=== PATIENT | female | born 1995 | race Caucasian/White ===

== ENCOUNTER 2022-10-09 08:00 | Outpatient (CLI) | payer OTHER ==
[2022-10-09 17:50] LABS: BILIRUBIN,URINE NEGATIVE (NEGATIVE); GLUCOSE, URINE (UA) NEGATIVE (NEGATIVE); KETONES,URINE (UA) NEGATIVE (NEGATIVE); LEUKOCYTE ESTERASE, URINE LARGE (NEGATIVE); NITRITE,URINE NEGATIVE (NEGATIVE); OCCULT BLOOD,URINE NEGATIVE (NEGATIVE); PROTEIN,URINE TRACE mg/dL (NEGATIVE); UROBILINOGEN,URINE 0.2 (NORMAL) E.U./dL (NORMAL)
[2022-10-09 17:52] LABS: CLARITY,URINE HAZY (CLEAR)
[2022-10-09 18:10] LABS: WBC,URINE >25 /HPF (0-5)
[2022-10-09 18:11] LABS: BACTERIA,URINE Moderate /HPF (None Seen); MUCUS,URINE Marked Strands; RBC,URINE 0-5 /HPF (0-5); SQUAMOUS EPITHELIAL CELL,UR MANY Squamous (<= Few)
== END 2022-10-09 23:59 | disposition home or self-care (01) ==
LOC: LAB.WC 08:00
PROVIDERS: ATTEND Nurse Practitioner
DX: Z34.90 Encounter for supervision of normal pregnancy, unspecified, unspecified trimester (principal)
CPT/HCPCS: 81001; 87086

== ENCOUNTER 2022-10-12 15:49 | Outpatient (CLI) | payer OTHER ==
[2022-10-12 16:14] LABS: BASOPHILS % (AUTO) 0.3 %; EOSINOPHILS # (AUTO) 0.1 10^3/uL (0.0-0.7); HCT - HEMATOCRIT 41.9 % (37.0-47.0); HGB - HEMOGLOBIN 14.1 g/dL (12.0-16.0); LYMPHOCYTES # (AUTO) 3.2 10^3/uL (1.5-3.5); LYMPHOCYTES % (AUTO) 25.7 %; MEAN CORPUSCULAR HEMOGLOBIN 30.6 pg (27.0-31.0); MEAN CORPUSCULAR HGB CONC 33.7 g/dL (32.0-36.0); MEAN CORPUSCULAR VOLUME 90.9 fL (81.0-99.0); MEAN PLATELET VOLUME 10.5 fL (7.9-10.8); MONOCYTES # (AUTO) 1.1 10^3/uL (0.0-1.0); MONOCYTES % (AUTO) 8.6 %; PLT - PLATELET COUNT 267 10^3/uL (130-450); RED BLOOD COUNT 4.61 10^6/uL (4.20-5.40); RED CELL DISTRIBUTION WIDTH 11.9 % (12.0-15.0); WHITE BLOOD COUNT 12.6 x10^3/uL (4.8-10.8)
[2022-10-13 03:08] LABS: HIV SCREEN 4TH GENERATION Non Reactive (Non Reactive)
[2022-10-13 05:10] LABS: HBsAG SCREEN Negative (Negative); HCV AB <0.1 s/co ratio (0.0-0.9)
[2022-10-13 07:11] LABS: RPR Non Reactive (Non Reactive)
== END 2022-10-12 15:50 | disposition home or self-care (01) ==
LOC: LAB 15:49
PROVIDERS: ATTEND Nurse Practitioner
DX: Z34.90 Encounter for supervision of normal pregnancy, unspecified, unspecified trimester (principal)
CPT/HCPCS: 36415; 85025; 86592; 86762; 86787; 86803; 86850; 86900; 86901; 87340; 87389

== ENCOUNTER 2022-10-21 16:49 | Outpatient (CLI) | payer OTHER ==
--- NOTE | 2022-10-21 21:09 | Ultrasound Report ---
PROCEDURE: OB First Trimester w/TV INDICATIONS: POSITIVE TEST OUTSIDE/PRIOR DATING DATA: Last menstrual period (LMP): 08/27/2022. LMP-based estimated date of delivery (YOMI): 06/03/2023. First dating scan (date and location): 10/21/2022. Estimated date of delivery (YOMI) from first dating scan: 06/04/2023. TECHNIQUE: Real-time scanning was performed of the fetus and maternal pelvic organs, with image documentation. Endovaginal scanning was also performed to better visualize the fetus and maternal ovaries. COMPARISON: None FINDINGS: Anteverted uterus contains a fundal gestational sac with a moderate decidual response. There is a sma ll inferior. Gestational hemorrhage measuring 1.5 x 0.7 x 2.7 cm. The maternal cervix is closed. Mean gestational sac diameter is 3.08 cm. There is a pole with an average crown-rump length of 1.4 cm corresponding to a 7 week 5 day gestation. There is an unfused amnion and normal appearing yol k sac. There is detectable cardiac activity and the fetus at a rate of 157 bpm. Maternal left ovary has a normal follicular appearance. Maternal right ovary contains a dominant foll icle with peripheral vascularity consistent with a corpus luteum. No free pelvic fluid. IMPRESSION: 1. Single living intrauterine with a gestational age of 7 weeks 5 days and estimated due da te 06/04/2023. 2. Small subchorionic hemorrhage but closed maternal cervix. 3. Right ovarian corpus luteum. Reviewed by: Celeste Platt MD on 10/21/2022 9:08 PM PST Approved by: Celeste Platt MD on 10/21/2022 9:08 PM PST Station ID: [id number]
== END 2022-10-21 16:50 | disposition home or self-care (01) ==
LOC: DI 16:49
PROVIDERS: ATTEND Nurse Practitioner
DX: O20.9 Hemorrhage in early pregnancy, unspecified (principal); O34.81 Maternal care for other abnormalities of pelvic organs, first trimester; N83.11 Corpus luteum cyst of right ovary; Z3A.01 Less than 8 weeks gestation of pregnancy

== ENCOUNTER 2022-11-06 11:03 | Outpatient (CLI) | payer OTHER ==
[2022-11-06 11:16] LABS: BILIRUBIN,URINE NEGATIVE (NEGATIVE); GLUCOSE, URINE (UA) NEGATIVE (NEGATIVE); KETONES,URINE (UA) NEGATIVE (NEGATIVE); LEUKOCYTE ESTERASE, URINE NEGATIVE (NEGATIVE); NITRITE,URINE NEGATIVE (NEGATIVE); OCCULT BLOOD,URINE NEGATIVE (NEGATIVE); PROTEIN,URINE NEGATIVE (NEGATIVE); UROBILINOGEN,URINE 0.2 (NORMAL) E.U./dL (NORMAL)
[2022-11-06 11:22] LABS: CLARITY,URINE HAZY (CLEAR)
[2022-11-06 11:27] LABS: BACTERIA,URINE Many /HPF (None Seen); MUCUS,URINE Marked Strands; RBC,URINE 0-5 /HPF (0-5); SQUAMOUS EPITHELIAL CELL,UR MANY Squamous (<= Few)
== END 2022-11-06 11:04 | disposition home or self-care (01) ==
LOC: LAB 11:03
PROVIDERS: ATTEND Nurse Practitioner
DX: R82.90 Unspecified abnormal findings in urine (principal)
CPT/HCPCS: 81001; 87086

== ENCOUNTER 2022-11-12 11:30 | Outpatient (CLI) | payer OTHER | END 2022-11-12 11:31 | disposition home or self-care (01) | LOC: LAB 11:30 | PROVIDERS: ATTEND Obstetrics & Gynecology | DX: E06.3 Autoimmune thyroiditis (principal) | CPT/HCPCS: 36415; 84443 ==

== ENCOUNTER 2022-12-22 15:45 | Outpatient (CLI) | payer OTHER ==
[2022-12-24 21:07] LABS: AFP MOM 0.85 (.); AFP VALUE 30.6 ng/mL (.); DIA MOM 1.06 (.); DIA VALUE 156.56 pg/mL (.); DSR (BY AGE) 1 IN 699 (.); DSR (SECOND TRIMESTER) 1 IN 2099 (.); GEST. AGE ON COLLECTION DATE 16.7 WEEKS (.); HCG MOM 1.46 (.); HCG VALUE 51573 mIU/mL (.); INSULIN DEP DIABETES No (.); MULTIPLE GESTATION No (.); OPEN SPINA BIFIDA RISK 1 IN 10000 (.); RACE Caucasian (.); RESULTS Report (.); TEST RESULTS *Screen Negative* (.); TRISOMY 18 RISK Not increased (.); UE3 MOM 0.97 (.); UE3 VALUE 1.06 ng/mL (.); WEIGHT 166 lbs (.)
== END 2022-12-22 15:46 | disposition home or self-care (01) ==
LOC: LAB 15:45
PROVIDERS: ATTEND Obstetrics & Gynecology
DX: Z36.89 Encounter for other specified antenatal screening (principal)
CPT/HCPCS: 36415; 81511

== ENCOUNTER 2023-01-19 19:00 | Outpatient (CLI) | payer OTHER ==
--- NOTE | 2023-01-21 09:27 | Ultrasound Report ---
PROCEDURE: OB Detailed Eval INDICATIONS: SIPERVISION OF OUTSIDE/PRIOR DATING DATA: Last menstrual period (LMP): 08/25/2022. LMP-based estimated date of delivery (YOMI): 06/03/2023. First dating scan (date and location): 10/21/2022. Estimated date of delivery (YOMI) from first dating scan: 06/04/2023. The below data below was generated using the working YOMI of 06/04/2023 TECHNIQUE: Real-time scanning was performed of the fetus, with image documentation and biometric measurements. Endovaginal scanning: Not performed COMPARISON: OB Ultrasound 10/21/2022. FINDINGS: General: A single living intrauterine gestation is present. Presentation: Breech Placenta: Placental position is posterior, without previa. Amniotic fluid index: 13.3 cm; largest pocket 4.4 cm. heart rate: 158 beats per minute. Maternal cervical canal: 4.2 cm long; normal length is 2.5 cm or more. biometrics: Biparietal diameter: 21 weeks 2 days. Head circumference: 21 weeks 2 days Abdominal circumference: 22 weeks 0 day Femur length: 21 weeks 2 days Estimated gestational age from initial scan: 20 weeks 4 days. Composite gestational age from present scan: 21 weeks 2 days Estimated weight and percentile: 437.9 g; 93.1% Measurement variability in biometric dating: +/- 10 days from 12-20 weeks gestation, +/- 2 weeks from 20-30 weeks gestation, +/- 3 weeks at 30 weeks gestation or later. Anatomic survey: Neuro: Ventricles are normal at less than 10 mm. Cisterna magna is normal at 3-11 mm. Cerebellum i s normal in size and morphology. Nuchal skin fold: Normal at less than 6 mm between 14 and 20 weeks gestational age. Face: Nose and lips, facial profile are normal. Spine: No evidence for spina bifida. Heart: 4-chambered heart is present, with normal ventricular outflow tracts. Diaphragm: Diaphragm is intact. Stomach: Left-sided stomach is present. Kidneys: No hydronephrosis. Normal is less than 5 mm in 2nd trimester, less than 7 mm in 3rd trimester. Cord: 3 vessel cord has orthotopic insertion. Bladder: Normal in size. Extremities: All 4 extremities are visualized. IMPRESSION: 1. A single living IUP is again identified and demonstrates normal interval growth. 2. weight at the 93.1% for gestational age. Reviewed by: Nirali Kang MD on 01/21/2023 9:26 AM [facility] Approved by: Nirali Kang MD on 01/21/2023 9:26 AM [facility] Station ID: [id number]
== END 2023-01-19 19:01 | disposition home or self-care (01) ==
LOC: DI 19:00
PROVIDERS: ATTEND Obstetrics & Gynecology
DX: Z34.90 Encounter for supervision of normal pregnancy, unspecified, unspecified trimester (principal); Z36.89 Encounter for other specified antenatal screening; Z3A.21 21 weeks gestation of pregnancy

== ENCOUNTER 2023-02-05 11:49 | Outpatient (CLI) | payer OTHER | END 2023-02-05 11:50 | disposition home or self-care (01) | LOC: LAB 11:49 | PROVIDERS: ATTEND Nurse Practitioner | DX: O26.842 Uterine size-date discrepancy, second trimester (principal) | CPT/HCPCS: 36415; 82950 ==

== ENCOUNTER 2023-03-05 12:40 | Outpatient (CLI) | payer OTHER ==
[2023-03-05 12:57] LABS: BASOPHILS % (AUTO) 0.3 %; EOSINOPHILS # (AUTO) 0.1 10^3/uL (0.0-0.7); EOSINOPHILS % (AUTO) 0.7 %; HCT - HEMATOCRIT 37.6 % (37.0-47.0); HGB - HEMOGLOBIN 12.5 g/dL (12.0-16.0); LYMPHOCYTES % (AUTO) 17.8 %; MEAN CORPUSCULAR HEMOGLOBIN 30.8 pg (27.0-31.0); MEAN CORPUSCULAR HGB CONC 33.2 g/dL (32.0-36.0); MEAN CORPUSCULAR VOLUME 92.6 fL (81.0-99.0); MONOCYTES # (AUTO) 0.7 10^3/uL (0.0-1.0); MONOCYTES % (AUTO) 6.5 %; NEUTROPHILS # (AUTO) 8.4 10^3/uL (1.5-6.6); NEUTROPHILS % (AUTO) 73.9 %; PLT - PLATELET COUNT 227 10^3/uL (130-450); RED BLOOD COUNT 4.06 10^6/uL (4.20-5.40); RED CELL DISTRIBUTION WIDTH 12.8 % (12.0-15.0); WHITE BLOOD COUNT 11.3 x10^3/uL (4.8-10.8)
[2023-03-05 13:19] LABS: ALBUMIN 2.8 g/dL (3.2-5.5); ALBUMIN/GLOBULIN RATIO 0.8 (1.0-2.2); BILIRUBIN,TOTAL 0.5 mg/dL (0.2-1.0); CALCIUM 8.8 mg/dL (8.5-10.3); CREATININE 0.5 mg/dL (0.4-1.0); POTASSIUM 3.5 mmol/L (3.5-5.0); TOTAL PROTEIN 6.1 g/dL (6.7-8.2); URIC ACID 4.5 mg/dL (2.6-7.2)
== END 2023-03-05 12:41 | disposition home or self-care (01) ==
LOC: LAB 12:40
PROVIDERS: ATTEND Nurse Practitioner
DX: O99.891 Other specified diseases and conditions complicating pregnancy (principal); R10.13 Epigastric pain
CPT/HCPCS: 36415; 80053; 82542; 82728; 84550; 85025

== ENCOUNTER 2023-04-06 11:15 | Outpatient (CLI) | payer OTHER ==
[2023-04-06 12:09] LABS: BASOPHILS % (AUTO) 0.4 %; EOSINOPHILS # (AUTO) 0.1 10^3/uL (0.0-0.7); EOSINOPHILS % (AUTO) 0.9 %; HCT - HEMATOCRIT 39.4 % (37.0-47.0); HGB - HEMOGLOBIN 13.2 g/dL (12.0-16.0); LYMPHOCYTES # (AUTO) 2.1 10^3/uL (1.5-3.5); LYMPHOCYTES % (AUTO) 20.5 %; MEAN CORPUSCULAR HEMOGLOBIN 30.5 pg (27.0-31.0); MEAN CORPUSCULAR HGB CONC 33.5 g/dL (32.0-36.0); MEAN PLATELET VOLUME 10.4 fL (7.9-10.8); MONOCYTES # (AUTO) 0.9 10^3/uL (0.0-1.0); MONOCYTES % (AUTO) 8.3 %; NEUTROPHILS # (AUTO) 7.2 10^3/uL (1.5-6.6); NEUTROPHILS % (AUTO) 68.8 %; PLT - PLATELET COUNT 214 10^3/uL (130-450); RED BLOOD COUNT 4.33 10^6/uL (4.20-5.40); RED CELL DISTRIBUTION WIDTH 12.5 % (12.0-15.0); WHITE BLOOD COUNT 10.4 x10^3/uL (4.8-10.8)
[2023-04-06 12:15] VITALS: BP 103/66
[2023-04-06 12:22] LABS: ALBUMIN 2.9 g/dL (3.2-5.5); ALBUMIN/GLOBULIN RATIO 0.8 (1.0-2.2); BILIRUBIN,TOTAL 0.5 mg/dL (0.2-1.0); CALCIUM 9.1 mg/dL (8.5-10.3); CREATININE 0.6 mg/dL (0.4-1.0); POTASSIUM 4.1 mmol/L (3.5-5.0); TOTAL PROTEIN 6.6 g/dL (6.7-8.2)
--- NOTE | 2023-04-06 14:15 | Ultrasound Report ---
PROCEDURE: Abdomen Limited INDICATIONS: Right lower quadrant pain TECHNIQUE: Real-time focused scanning was performed of the abdomen, with image documentation. COMPARISONS: None. FINDINGS: Graded compression scanning the right lower quadrant fails to demonstrate the appendix. No free fluid or adenopathy present. Normal appearing bowel and fascial planes IMPRESSION: Nonvisualized appendix. Appendicitis not excluded Reviewed by: Isauro Aparicio MD on 04/06/2023 1:14 PM [facility] Approved by: Isauro Aparicio MD on 04/06/2023 1:14 PM [facility] Station ID: [id number]
--- NOTE | 2023-04-06 14:18 | Ultrasound Report ---
PROCEDURE: OB F/U or Repeat INDICATIONS: Decreased movement OUTSIDE/PRIOR DATING DATA: Last menstrual period (LMP): 08/27/2022. LMP-based estimated date of delivery (YOMI): 06/03/2023. First dating scan (date and location): 10/21/2022. Estimated date of delivery (YOMI) from first dating scan: 06/04/2023. The below data below was generated using the working YOMI of 06/04/2023 TECHNIQUE: Real-time scanning was performed of the fetus, with image documentation and biometric measurements. Endovaginal scanning: None COMPARISON: 01/19/2023 FINDINGS: General: A single living intrauterine gestation is present. Presentation: Cephalic Placenta: Placental position is posterior/fundal, without previa. Amniotic fluid index: 13.6 cm, 40.9 for gestational age. heart rate: 145 beats per minute. Maternal cervical canal: 3.9 cm long; normal length is 2.5 cm or more. biometrics: Biparietal diameter: 8.5 cm, 34 week 1 day Head circumference: 31.6 cm, 35 week 4 day Abdominal circumference: 30.4 cm, 34 week 3 day Femur length: 6.5 cm, 33 week 5 day Estimated gestational age from initial scan: 31 week 4 day Composite gestational age from present scan: 34 week 3 day Estimated weight and percentile: 2392 g, 99 percentile Measurement variability in biometric dating: +/- 10 days from 12-20 weeks gestation, +/- 2 weeks from 20-30 weeks gestation, +/- 3 weeks at 30 weeks gestation or more. Other: Incidental note is made of bilateral renal pelvocaliectasis measured 6.9 mm on the right IMPRESSION: Single live intrauterine consistent with 34 week 3 day gestation. Estimated weight is at the 99th percentile Reviewed by: Isauro Aparicio MD on 04/06/2023 1:17 PM [facility] Approved by: Isauro Aparicio MD on 04/06/2023 1:17 PM [facility] Station ID: [id number]
--- NOTE | 2023-04-06 18:54 | PROVIDER PROGRESS NOTE ---
- HPI Chief Complaint: Decreased movement Current : Current EDU 06/03/23 Gestation 31 Weeks and 5 Days 1 Para 0 Vital Signs Heart Rate 68 04/06/23 11:36 Respiratory Rate 18 04/06/23 11:36 Blood Pressure 75/44 L 04/06/23 11:36 O2 Saturation 100 04/06/23 11:36 Temperature 98.2 F 04/06/23 12:36 Heart Rate 79 04/06/23 11:43 Respiratory Rate 18 04/06/23 11:43 Blood Pressure 103/66 04/06/23 11:43 O2 Saturation 100 04/06/23 11:36 If not protocol: Oxygen Flow, liters/minute - Procedures OB Procedure Performed: NST Diagnosis/Indication for NST: Decreased movement NST Procedure: NST Procedure Start Date 04/06/23 Start Time 11:20 Stop Time 11:51 Vibroacoustic Stimulation Used No Patient States Movement No: not in past 2 hours EFM: 140, moderate variability, positive 15x15 accelerations, no decelerations [place]: no contractions NST reactive/Cat 1 Performed and read 04/06/23 Service Date of procedure: 04/06/23 - Plan Plan: 27yo at 31.5w presented to [facility] with concern of decreased movement for over an hour, initially presented tearful. She also reports pain right side of umbilicus 8/10 earlier this am. Currently pain is less 2-3. Denies leaking fluid or contractions or bleeding. Has felt FM in triage. Ate breakfast this morning and is tolerating crackers right now. Denies nausea/vomiting. Last BM yesterday and normal. Denies any abdominal trauma. care at and complicated by hypothyroidism, mild intermittent asthma, genital hsv. VSS GEN: NAD CV: Regular rate Resp: Breathing unlabored Abd: soft, no rebound or guarding, mild ttp right side Ext: nt CBC and CMP reviewed and benign OB US- growth >99th%, CL 3.9cm long ABD US- did not visualize appendix 27yo at 31.5w, false labor - NST reactive, patient reassured - CL 3.9cm, no contractions - Evaluated for appendicitis, not visualized. Exam benign, she will continue to monitor symptoms - Discharge to home, follow up as scheduled or prn
== END 2023-04-06 14:15 | disposition home or self-care (01) ==
LOC: WFO 11:15 → FBP 11:17 → WFO 14:15
PROVIDERS: ATTEND Obstetrics & Gynecology
DX: O36.8130 Decreased fetal movements, third trimester, not applicable or unspecified (principal); O47.03 False labor before 37 completed weeks of gestation, third trimester; O99.891 Other specified diseases and conditions complicating pregnancy; R10.31 Right lower quadrant pain; O99.283 Endocrine, nutritional and metabolic diseases complicating pregnancy, third trimester; E03.9 Hypothyroidism, unspecified; O99.513 Diseases of the respiratory system complicating pregnancy, third trimester; J45.20 Mild intermittent asthma, uncomplicated; B00.9 Herpesviral infection, unspecified; O98.313 Other infections with a predominantly sexual mode of transmission complicating pregnancy, third trimester; A60.09 Herpesviral infection of other urogenital tract; Z3A.31 31 weeks gestation of pregnancy
CPT/HCPCS: 36415; 59025; 80053; 85025; 99213

== ENCOUNTER 2023-05-04 09:24 | Outpatient (CLI) | payer OTHER ==
--- NOTE | 2023-05-04 16:50 | Ultrasound Report ---
PROCEDURE: OB F/U or Repeat INDICATIONS: UTERINE SIZE DATE DISCREPENCY OUTSIDE/PRIOR DATING DATA: Last menstrual period (LMP): 08/27/2022. LMP-based estimated date of delivery (YOMI): 06/03/2023. First dating scan (date and location): 10/21/2022. Estimated date of delivery (YOMI) from first dating scan: 06/04/2023. The below data below was generated using the ultrasound YOMI of 06/04/2023 TECHNIQUE: Real-time scanning was performed of the fetus, with image documentation and biometric measurements. Endovaginal scanning: Not performed COMPARISON: 04/06/2023 FINDINGS: General: A single living intrauterine gestation is present. Presentation: Cephalic Placenta: Placental position is posterior, without previa. Amniotic fluid index: 18.1 cm, largest pocket is 6.2 cm. heart rate: 143 beats per minute. Maternal cervical canal: Not seen biometrics: Biparietal diameter: 9.2 cm, 37 weeks 1 day Head circumference: 33.8 cm, 38 weeks 5 days Abdominal circumference: 35.3 cm, 39 weeks 1 day Femur length: 7.2 cm, 37 weeks 0 days Estimated gestational age from initial scan: 35 weeks 4 days. Composite gestational age from present scan: 38 weeks 0 days Estimated weight and percentile: 3478 g, 99th percentile Measurement variability in biometric dating: +/- 10 days from 12-20 weeks gestation, +/- 2 weeks from 20-30 weeks gestation, +/- 3 weeks at 30 weeks gestation or more. Other: Not applicable. IMPRESSION: 1. Single living intrauterine . 2. Estimated weight at the 99th percentile, similar compared to the prior study. 3. Normal amniotic fluid volume. Reviewed by: Celeste Platt MD on 05/04/2023 4:49 PM PDT Approved by: Celeste Platt MD on 05/04/2023 4:49 PM PDT Station ID: [id number]
== END 2023-05-04 09:25 | disposition home or self-care (01) ==
LOC: DI 09:24
PROVIDERS: ATTEND Nurse Practitioner
DX: O26.843 Uterine size-date discrepancy, third trimester (principal); O99.283 Endocrine, nutritional and metabolic diseases complicating pregnancy, third trimester; E06.3 Autoimmune thyroiditis; Z3A.38 38 weeks gestation of pregnancy
CPT/HCPCS: 36415; 84443

== ENCOUNTER 2023-05-07 08:00 | Outpatient (CLI) | payer OTHER | END 2023-05-07 23:59 | disposition home or self-care (01) | LOC: LAB.WC 08:00 | PROVIDERS: ATTEND Obstetrics & Gynecology | DX: Z36.85 Encounter for antenatal screening for Streptococcus B (principal) | CPT/HCPCS: 87797 ==

== ENCOUNTER 2023-05-08 13:32 | Outpatient (CLI) | payer OTHER ==
[2023-05-08 14:03] VITALS: BP 114/74
[2023-05-08 14:23] LABS: RUPTURE OF MEMBRANES PLUS NEGATIVE (NEGATIVE)
--- NOTE | 2023-05-08 15:08 | PROVIDER PROGRESS NOTE ---
- HPI Chief Complaint: Leakage of vaginal fluid Current : Vital Signs Temperature 98.2 F 05/08/23 13:54 Heart Rate 86 05/08/23 13:54 Respiratory Rate 16 05/08/23 13:54 Blood Pressure 114/74 05/08/23 13:54 Temperature 98.2 F 05/08/23 13:54 Heart Rate 86 05/08/23 13:54 Respiratory Rate 16 05/08/23 13:54 Blood Pressure 114/74 05/08/23 13:54 O2 Saturation If not protocol: Oxygen Flow, liters/minute - Procedures Diagnosis/Indication for NST: labor NST Procedure: NST Procedure Start Time 11:20 Stop Time 11:51 EFM: 140s, moderate variability, positive accelerations, no decelerations [place]: occasional contractions NST reactive/Cat 1 Performed and read 05/08/23 - Plan Plan: 27yo at 36.2w presenting to [facility] with concern of leaking fluid. Occasional mild contractions, 1-2cm yesterday in the office. No vaginal bleeding. Good movement. care at . S GEN: NAD NST reactive ROMPLUS neg 27yo at 36.2w, false labor - Membranes intact - Labor precautions - Discharge home, follow up 05/13/23
== END 2023-05-08 14:50 | disposition home or self-care (01) ==
LOC: WFO 13:32 → FBP 13:35 → WFO 14:50
PROVIDERS: ATTEND Obstetrics & Gynecology
DX: O47.03 False labor before 37 completed weeks of gestation, third trimester (principal); O99.891 Other specified diseases and conditions complicating pregnancy; N89.8 Other specified noninflammatory disorders of vagina; Z3A.36 36 weeks gestation of pregnancy
CPT/HCPCS: 59025; 84112; 99215

== ENCOUNTER 2023-05-23 08:08 | Outpatient (CLI) | payer OTHER ==
[2023-05-23 08:53] VITALS: BP 129/77
--- NOTE | 2023-05-23 09:39 | PROCEDURE REPORT ---
- HPI Diagnosis/Indication for NST: Decreased movement Vital Signs Temperature 97.9 F 05/23/23 08:43 Temperature 97.9 F 05/23/23 08:52 Heart Rate 86 05/23/23 08:52 Respiratory Rate 17 05/23/23 08:52 Blood Pressure 129/77 05/23/23 08:52 O2 Saturation 99 05/23/23 08:52 If not protocol: Oxygen Flow, liters/minute - NST Procedure NST Procedure Start Time 13:56 Stop Time 14:16 - Results and Plan Findings/Impression: Cat 1 tracing; mild cramping but no bleeding or discharge Recommend continued labor precautions and follow as schedule for planned induction this Daily FNC's and return if any changes
== END 2023-05-23 09:46 | disposition home or self-care (01) ==
LOC: WFO 08:08 → FBP 08:21 → WFO 09:46
PROVIDERS: ATTEND Obstetrics & Gynecology
DX: O36.8130 Decreased fetal movements, third trimester, not applicable or unspecified (principal); Z3A.38 38 weeks gestation of pregnancy
CPT/HCPCS: 59025; 99213; 99215

== ENCOUNTER 2023-05-30 00:13 | Inpatient (IN) | payer OTHER ==
[2023-05-30] MEDS ORDERED: OXYTOCIN/SODIUM CHLORIDE 500 ML IV PRN (01:49)
[2023-05-30] MEDS ORDERED: fentaNYL 100 MCG/2 ML VIAL IVP PRN (01:49)
[2023-05-30] MEDS ORDERED: OXYTOCIN 10 UNIT/ML VIAL IM PRN (01:49)
[2023-05-30] MEDS ORDERED: SODIUM CHLORIDE FLUSH 0.9% 10 ML SYRINGE IVP PRN (01:49)
[2023-05-30] MEDS ORDERED: METHYLERGONOVINE 0.2 MG/ML VIAL IM PRN (01:49)
[2023-05-30] MEDS ORDERED: ONDANSETRON 4 MG/2 ML VIAL IVP PRN (01:49)
[2023-05-30] MEDS ORDERED: hydrALAZINE INJ 20 MG/ML VIAL IVP PRN ×2 (01:49)
[2023-05-30] MEDS ORDERED: lidocaine 1% 20 ML MDV ID PRN (01:49)
[2023-05-30] MEDS ORDERED: NIFEdipine 10 MG CAPSULE PO PRN (01:49)
[2023-05-30] MEDS ORDERED: TRANEXAMIC ACID IN NACL 1,000 MG/100 ML BAG IV PRN (01:49)
[2023-05-30] MEDS ORDERED: miSOPROStoL 200 MCG TABLET BC PRN (01:49)
[2023-05-30] MEDS ORDERED: CARBOPROST TROMETHAMINE 250 MCG/ML AMP IM PRN (01:49)
[2023-05-30] MEDS ORDERED: AMPICILLIN 2 GM in SODIUM CHLORIDE 0.9% MINIBAG 100 ML IV ONE (01:49)
[2023-05-30] MEDS ORDERED: LABETALOL 20 MG/4 ML SYRINGE IVP PRN ×3 (01:49)
[2023-05-30] MEDS ORDERED: TERBUTALINE 1 MG/ML VIAL SUBQ PRN (01:49)
[2023-05-30] MEDS ORDERED: LACTATED RINGERS 1,000 ML IV SCH ×2 (02:00→15:00)
[2023-05-30 03:01] LABS: BASOPHILS % (AUTO) 0.4 %; EOSINOPHILS # (AUTO) 0.2 10^3/uL (0.0-0.7); EOSINOPHILS % (AUTO) 1.7 %; HCT - HEMATOCRIT 39.4 % (37.0-47.0); HGB - HEMOGLOBIN 13.4 g/dL (12.0-16.0); LYMPHOCYTES # (AUTO) 2.7 10^3/uL (1.5-3.5); MEAN CORPUSCULAR HEMOGLOBIN 30.9 pg (27.0-31.0); MEAN CORPUSCULAR VOLUME 90.8 fL (81.0-99.0); MEAN PLATELET VOLUME 12.2 fL (7.9-10.8); MONOCYTES % (AUTO) 8.9 %; NEUTROPHILS # (AUTO) 6.8 10^3/uL (1.5-6.6); NEUTROPHILS % (AUTO) 63.2 %; PLT - PLATELET COUNT 164 10^3/uL (130-450); RED BLOOD COUNT 4.34 10^6/uL (4.20-5.40); RED CELL DISTRIBUTION WIDTH 13.2 % (12.0-15.0); WHITE BLOOD COUNT 10.8 x10^3/uL (4.8-10.8)
[2023-05-30] MEDS: AMPICILLIN 1 GM in SODIUM CHLORIDE 0.9% MINIBAG 100 ML IV SCH ×2 (06:48→10:42)
--- NOTE | 2023-05-30 08:33 | HISTORY & PHYSICAL EXAMINATION ---
Admit History - Visit Reason Visit Reason: Membranes rupture - : 1 Parity: 0 Care: positive: [facility] Risk/History: positive: None Complications This : positive: None Smoking Status: Never smoker - Mother's Labs Mother's Blood Type: positive: AB Mother's RH: positive: Positive GBS: positive: Group B Strep Positive - HPI Current EDU 06/03/23 Gestation 39 Weeks and 3 Days 1 Vital Signs Temperature 98.6 F 05/30/23 00:47 Heart Rate 77 05/30/23 00:47 Respiratory Rate 20 05/30/23 00:47 Blood Pressure 121/84 H 05/30/23 00:47 Temperature 97.9 F 05/30/23 03:00 Heart Rate 94 05/30/23 03:00 Respiratory Rate 18 05/30/23 03:00 Blood Pressure 108/64 05/30/23 03:00 O2 Saturation If not protocol: Oxygen Flow, liters/minute - NST Procedure NST Procedure Start Time 08:30 Stop Time 09:20 Meds/Allgy - Allergies Allergies/Adverse Reactions: Allergies Allergy/AdvReac Type Severity Reaction Status Date / Time No Known Drug Allergies Allergy Verified 05/08/23 14:15 Review of Systems - Constitutional Constitutional: reports: Fatigue - All Other Systems All Other Systems: reports: Reviewed and negative Physical - Abdominal Exam Vital Signs: Temp Pulse Resp BP Pulse Ox O2 Flow Rate 97.9 F 94 18 108/64 05/30/23 03:00 05/30/23 03:00 05/30/23 03:00 05/30/23 03:00 : q 2-3 min Contraction Intensity: positive: Strong Uterine Resting Tone: positive: Soft - Monitoring Strip Review: positive: Category I - Presentation Presentation: positive: Vertex - Vaginal Exam Membranes: positive: Membranes ruptured Dilation (in cm): 5-6 Effacement (%): 100 Station: positive: 1 Cervical Position: positive: Midposition - Speculum Exam Speculum Exam Performed: positive: No Findings: positive: Gross leak Plan for Labor - Plan For Labor I expect patient to be DC'd or transferred within 96 hours.: Yes Plan for Labor: admit for labor 39 weeks. ampicillin for gbs pain management as desired. hsv on acyclovir until admit. no signs of lesions. large baby by ultrasound, 99%ile at 36 weeks. be ready for shoulder dystocia. pitocin augmentation as needed. not needed at this time. thyroid med daily.
--- NOTE | 2023-05-30 11:52 | PROVIDER PROGRESS NOTE ---
Subjective - Prog Note Date Prog Note Date: 05/30/23 Prog Note Time: 11:52 - Subjective Subjective: very painful with contractions. pushing involuntarily. still does not want an epidural. agrees to try some fentanyl. Objective - Vital Signs/Intake & Output Intake & Output: Intake & Output 05/27/23 05/28/23 05/29/23 05/30/23 23:59 23:59 23:59 23:59 Intake Total 200 Balance 200 - Objective Extremities: positive: Pedal edema (2+) - Lab Results Fish Bones: 05/30/23 02:40 Other Labs: Lab Results x24hrs 05/30/23 05/30/23 Range/Units 02:40 02:40 WBC 10.8 (4.8-10.8) x10^3/uL RBC 4.34 (4.20-5.40) 10^6/uL Hgb 13.4 (12.0-16.0) g/dL Hct 39.4 (37.0-47.0) % MCV 90.8 (81.0-99.0) fL MCH 30.9 (27.0-31.0) pg MCHC 34.0 (32.0-36.0) g/dL RDW 13.2 (12.0-15.0) % Plt Count 164 (130-450) 10^3/uL MPV 12.2 H (7.9-10.8) fL Neut # (Auto) 6.8 H (1.5-6.6) 10^3/uL Lymph # (Auto) 2.7 (1.5-3.5) 10^3/uL [place] # (Auto) 1.0 (0.0-1.0) 10^3/uL Eos # (Auto) 0.2 (0.0-0.7) 10^3/uL Baso # (Auto) 0.0 (0.0-0.1) 10^3/uL Absolute Nucleated RBC 0.00 x10^3/uL Nucleated RBC % 0.0 /100WBC Blood Type AB POSITIVE Antibody Screen NEGATIVE - Other Results/Comments Other Results/Comments: cervix 8-9 with anterior swelling that is pretty significant. cervix is bleeding more with each contraction. baby's head is filling pelvis, +1 station. hard to tell position as she is so uncomfortable. Assessment/Plan - Problem List (1) Normal labor Impression: making progress but is challenged by pain of contractions and urge to push. cervix is swelling. will try some fentanyl. baby is category 1. having some early decels.
[2023-05-30] MEDS ORDERED: MINERAL OIL LIGHT 10 ML MC ONE (13:42)
--- NOTE | 2023-05-30 14:25 | DELIVERY NOTE ---
Delivery Note - Labor Labor: positive: Spontaneous - Delivery Method Delivery Method: positive: Spontaneous vaginal delivery - Presentation Presentation: positive: Vertex, GORD[place] - right occiput anterior - Nuchal Cord Nuchal Cord: positive: None - Anesthetic Anesthetic Type: Anesthetic: positive: Lidocaine - 1% plain - Amniotic Fluid Description Amniotic Fluid Description: positive: Clear - Episiotomy Type Episiotomy Type: positive: None - Laceration Laceration: positive: 2nd degree, Perineal - Suture Suture Type: positive: Vicryl Suture Size: positive: 3-0 - Delivery Outcome Delivery Outcome: positive: Livebirth - : positive: Placed in direct skin contact with mother, Bulb syringe, Stimulated, Warmed, [place] used [place] sex: positive: Male - Cord Cord: positive: 3 vessels - Placenta Placenta: positive: Intact, Spontaneous - Estimated Blood Loss Estimated Blood Loss (in cc): 300 - Post Delivery Events Post Delivery Events: positive: No post delivery events - Delivery Comments (Free Text/Narrative) Delivery Comments (Free Text/Narrative): Patient's labor was completely spontaneous and unmedicated, except some nitrous oxide that did not help her and one dose of 50 mcg of fentanyl when she was 8-9 cm that also did not really help. She was 8-9 cm with an anterior lip that was a bit swollen for a few hours. I was finally able to reduce it when she was +2 to +3 station and then baby was at perineum. She was able to push her baby out in about 15 minutes. Polly and Bridger were an amazing labor team. Once the baby's head was , perineal massage and warm compress was done. She tore a bit at her perineum with delivery, 2nd degree. Baby Mio was put on her belly and cord was cut at 3 minutes. Placenta delivered about 3 minutes later. Pitocin was infused in the iv with delivery. Cord blood was collected. Perineum was injected with 1% lidocaine and repaired in 2 layers with 3-0 Vicryl Plus suture. Rectum was checked and is intact. No signs of infection. Definitely pushed out a cystocele and some hemorrhoids.
[2023-05-30] MEDS: IBUPROFEN 600 MG TABLET PO SCH ×2 (15:48→21:56)
[2023-05-30] MEDS: LEVOTHYROXINE 100 MCG TABLET PO SCH (20:04)
[2023-05-30] MEDS: ACETAMINOPHEN 325 MG TABLET PO PRN (21:55)
[2023-05-31] MEDS: IBUPROFEN 600 MG TABLET PO SCH ×2 (04:05→12:35)
[2023-05-31 07:20] LABS: BASOPHILS # (AUTO) 0.1 10^3/uL (0.0-0.1); BASOPHILS % (AUTO) 0.4 %; EOSINOPHILS % (AUTO) 0.2 %; HCT - HEMATOCRIT 34.2 % (37.0-47.0); HGB - HEMOGLOBIN 11.4 g/dL (12.0-16.0); LYMPHOCYTES # (AUTO) 2.8 10^3/uL (1.5-3.5); LYMPHOCYTES % (AUTO) 17.9 %; MEAN CORPUSCULAR HEMOGLOBIN 30.6 pg (27.0-31.0); MEAN CORPUSCULAR HGB CONC 33.3 g/dL (32.0-36.0); MEAN CORPUSCULAR VOLUME 91.9 fL (81.0-99.0); MEAN PLATELET VOLUME 12.2 fL (7.9-10.8); MONOCYTES # (AUTO) 1.3 10^3/uL (0.0-1.0); NEUTROPHILS # (AUTO) 11.3 10^3/uL (1.5-6.6); NEUTROPHILS % (AUTO) 72.9 %; PLT - PLATELET COUNT 154 10^3/uL (130-450); RED BLOOD COUNT 3.72 10^6/uL (4.20-5.40); RED CELL DISTRIBUTION WIDTH 13.2 % (12.0-15.0); WHITE BLOOD COUNT 15.6 x10^3/uL (4.8-10.8)
[2023-05-31] MEDS: ACETAMINOPHEN 325 MG TABLET PO PRN (12:34)
[2023-05-31] MEDS: LEVOTHYROXINE 100 MCG TABLET PO SCH (12:39)
[2023-05-31 12:45] VITALS: BP 119/75
--- NOTE | 2023-05-31 12:45 | Discharge Plan ---
Discharge Plan Problem Reviewed?: Yes Disposition: Home, Self Care Condition: Good Diet: Regular Activity Restrictions: pelvic rest for 6 weeks Shower Restrictions: No Driving Restrictions: No No Smoking: If you smoke, Please STOP! Call for help. Follow-up with: Alexandria Melgoza DO [Provider Admit Priv/Credential] - 2 Weeks
--- NOTE | 2023-05-31 12:57 | DISCHARGE SUMMARY ---
Discharge Summary Admit Date: 05/30/23 Discharge Date: 05/31/23 - DIAGNOSES Admission Diagnoses: term labor delivered. + GBS Discharge Diagnoses with Status of Each Condition: resolved. - HPI History of Present Illness: presented with SROM. progressed spontaneously. vaginal delivery. essentially unmedicated. repair of 2nd degree laceration. post course uncomplicated. - ALLERGIES Allergies/Adverse Reactions: Allergies Allergy/AdvReac Type Severity Reaction Status Date / Time No Known Drug Allergies Allergy Verified 05/08/23 14:15 - MEDICATIONS Home Medications: Ambulatory Orders Medication Instructions Recorded Confirmed Acetaminophen [Tylenol] 650 mg PO Q4HR PRN tab 05/31/23 Ibuprofen [Motrin] 600 mg PO Q6H tab 05/31/23 Levothyroxine [Synthroid] 100 mcg PO QDAC tab 05/31/23 - PHYSICAL EXAM AT DISCHARGE General Appearance: positive: No acute distress, Alert Respiratory: positive: No respiratory distress Cardiovascular: positive: Regular rate & rhythm Abdomen: positive: Non-tender - LABS Result Diagrams: 05/31/23 05:50 - FOLLOW UP Follow Up: 2-3 weeks in ob clinic
--- NOTE | 2023-05-31 16:39 | Labor Flowsheet ---
Labor Flowsheet Datetime Report Generated by CPN: 05/31/2023 16:39 Datetime: 05/31/2023 12:39 VITAL SIGNS NBP Sys/Graciela/Mean (mmHg): 119 : 75 : 85 Pulse: 86 Datetime: 05/30/2023 14:05 SpO2 (%): 100 Datetime: 05/30/2023 13:53 Stage of : Recovery MEDICATIONS Pitocin (milliunits): Started @ 999 Medication Comments: jpost pit started Stage 2 Comments: placenta delivered Datetime: 05/30/2023 13:45 UTERINE ACTIVITY Monitor Mode: External Frequency (min): 1.5-2 Quality: Strong Duration (sec): 40-60 Pattern: Normal: <= 5 Contractions in 10 Minutes Resting Tone (Palpate): Relaxed ASSESSMENT A Monitor Mode: Telemetry FHR Baseline Rate : 150 Variability: Moderate 6-25 bpm Accelerations: 15X15 Category: Category II Comments: possible decels with pushing Datetime: 05/30/2023 13:35 STAGE 2 Pushing: Urge to Push Pushing Position: Pushing with Contractions; Pushing Lithotomy Pushing Progress: Descent with Pushing Datetime: 05/30/2023 13:30 Decelerations: None Datetime: 05/30/2023 12:55 COMMUNICATION Communication: Provider at Bedside Datetime: 05/30/2023 12:24 Patient Care Comments: hands and knees in bed Datetime: 05/30/2023 12:16 VAGINAL EXAM Dilatation (cm): 8.5 Datetime: 05/30/2023 11:31 PATIENT CARE IV/Blood Work: IV Bolus Started Datetime: 05/30/2023 11:28 Analgesics/Sedatives: Fentanyl (mcg) @ 50 Datetime: 05/30/2023 11:18 Exam by: Dr. Hartley Datetime: 05/30/2023 11:03 Communication Comments: provider still bedside Datetime: 05/30/2023 10:44 Antibiotics: Ampicillin IV 1 Gm Datetime: 05/30/2023 10:26 Vaginal Bleeding: Normal Show Datetime: 05/30/2023 10:25 Effacement (%): 100 Station: 2 Datetime: 05/30/2023 09:59 LaborFlag: Labor Datetime: 05/30/2023 08:54 Contraction Comments: Pt. very focussed breathing through contractions Datetime: 05/30/2023 08:42 Temperature (C): 36.7 Datetime: 05/30/2023 08:30 Monitor Interventions for UA: [place] Adjusted Datetime: 05/30/2023 07:16 Notification Reason: Status Update; Status; Labor Status; Membrane Status; Uterine Activity; Pain Datetime: 05/30/2023 07:10 TEACHING Instructional Method: Verbal; Patient Instructed; Family/Support Person Instructed; Verbalized Unde rstanding Pain Management: PRN Medications; Pain Scale/Goals; Comfort Measures Medications: Reviewed nitrous oxide administration; pt agreeable to trying it for pain mgmt Datetime: 05/30/2023 07:07 Cervix, Consistency: Soft Cervix, Position: Anterior Datetime: 05/30/2023 07:00 FHR Baseline Changes: No Baseline Change Datetime: 05/30/2023 06:00 PAIN Pain Scale: 8 Pain Presence: Intermittent Pain Type: Cramping; Contraction Pain Location: Abdomen; Right Groin; Left Groin Pain Goal: 10 Pain Relief Measures: Comfort Measures Pain Coping: Breathing Through Contractions; Declines Medication or Epidural Datetime: 05/30/2023 05:36 Patient Position/Activity: Left Tilt Datetime: 05/30/2023 05:05 Respirations: 20 Temperature Route: Oral Vital Sign Comments: Datetime: 05/30/2023 04:30 Oxygen Method: Room Air Comfort Measures: Breathing/Relaxation; Coaching; Family Support Datetime: 05/30/2023 04:08 I/O Interventions: Up to BR Datetime: 05/30/2023 04:00 Pain Assessment Comments: Given birthing ball, dean birthing stool, candles, starlights for relaxat ion. Datetime: 05/30/2023 02:57 Membrane Comments: SROM @ 0003, clear, mod MATERNAL ASSESSMENT Level of Consciousness: Alert DTR's/Clonus: DTRs 3+; 1 Beat Clonus Headache: Denies Breath Sounds, Left: Clear and Equal Breath Sounds, Right: Clear and Equal Nausea/Vomiting: Denies RUQ Epigastric Pain: Denies Datetime: 05/30/2023 02:14 Plan of Care: Plan of Care Discussed; Labor Unit Routine: [place] to Room; Call [place]; Bed; Phone/Cell Phone Use; Unit Personnel; Handwashing; Fe cecelia Monitoring; IV Pumps; Safety/Fall Risk Prevention; Diet/Nutrition Services; Bathroom Privileges; Medications Labor/Induction: Labor Stages; Antibiotic Use; Activity Related: Nutrition; Hydration; Activity and Rest Datetime: 05/30/2023 01:42 Provider Reviewed Strip: No Provider Notified (Name): Dr Hartley Datetime: 04/06/2023 17:33 Membranes Ruptured Date/Time: 05/30/2023 00:03 Membranes Rupture Method: Spontaneous Amniotic Fluid Color: Clear Amniotic Fluid Amount: Moderate Amniotic Fluid Odor: Normal
== END 2023-05-31 16:38 | disposition home or self-care (01) | DRG 806 ==
LOC: WFO 00:13 → FBP 00:38 → WFO 01:48 → FBP 01:48
PROVIDERS: ADMIT Obstetrics & Gynecology; ATTEND Obstetrics & Gynecology
PROC: 0KQM0ZZ Repair Perineum Muscle, Open Approach (ICD-10-PCS; principal; 2023-05-30)
PROC: 10E0XZZ Delivery of Products of Conception, External Approach (ICD-10-PCS; 2023-05-30)
PROC: 4A0HXCZ Measurement of Products of Conception, Cardiac Rate, External Approach (ICD-10-PCS; 2023-05-30)
DX: O70.1 Second degree perineal laceration during delivery (principal); O98.32 Other infections with a predominantly sexual mode of transmission complicating childbirth; Z37.0 Single live birth; O99.824 Streptococcus B carrier state complicating childbirth; Z3A.39 39 weeks gestation of pregnancy; A60.00 Herpesviral infection of urogenital system, unspecified; O99.284 Endocrine, nutritional and metabolic diseases complicating childbirth; E06.3 Autoimmune thyroiditis; O76 Abnormality in fetal heart rate and rhythm complicating labor and delivery; Z79.890 Hormone replacement therapy; Z79.899 Other long term (current) drug therapy
CPT/HCPCS: 36415; 85025; 86850; 86900; 86901; 99215; A9270; J7120